=== PATIENT | female | born 1990 | race Caucasian/White ===

== ENCOUNTER 2018-10-25 09:40 | Emergency (ER) | payer SELFPAY ==
[~2018-10-25] VITALS: Ht 152.4 cm; Wt 47.0 kg
[~2018-10-25 09:40] MED LIST: PREN-39 PO
[2018-10-25 09:42] VITALS: BP 106/56; PULSE 81; RESP 18; Ht 152.4 cm; Wt 47.0 kg
== END 2018-10-25 16:04 | disposition left against medical advice (07) ==
LOC: FTE 09:40
DX: Z53.21 Procedure and treatment not carried out due to patient leaving prior to being seen by health care provider (principal)

== ENCOUNTER 2019-01-22 12:20 | Emergency (ER) | payer SELFPAY ==
[~2019-01-22] VITALS: Ht 154.9 cm; Wt 46.4 kg
[~2019-01-22 12:20] MED LIST changes: +MUPI22OI2 TOP
[2019-01-22 12:54] VITALS: BP 120/67; PULSE 76; RESP 18; Ht 154.9 cm; Wt 46.4 kg
== END 2019-01-22 14:44 | disposition home or self-care (01) ==
LOC: E/R 12:20
DX: R21 Rash and other nonspecific skin eruption (principal); Z87.891 Personal history of nicotine dependence
CPT/HCPCS: 99283